=== PATIENT | male | born 1990 | race Two or more races ===

== ENCOUNTER 2019-01-26 21:21 | Emergency (ER) | payer SELFPAY ==
[~2019-01-26] VITALS: Ht 185.4 cm; Wt 77.1 kg
--- NOTE | 2019-01-26 21:45 | NUR ---
ED Nurse Note: pt brought in by [employer] and [employer] from intersection, c/c ETOH, pt was found on the intersection intoxicated, pt reports he drank 2 beer tonight. pt AA&ox4, gcs=15, skin warm and dry, resp even and unlabored, -n/v, vss. Report given to LEO Barry.
[2019-01-26] MEDS ORDERED: Zolpidem 5mg tab ORAL PRN (22:15)
[2019-01-26] MEDS ORDERED: chlordiazePOXIDE 25mg Cap ORAL PRN (22:15)
[2019-01-26] MEDS ORDERED: Miralax 17gm pkt ORAL PRN (22:15)
[2019-01-26] MEDS ORDERED: Morphine Sulfate 2mg/ml Inj(IV/IM USE ONLY) IVP PRN (22:15)
[2019-01-26] MEDS ORDERED: LORazepam Inj 2mg/ml 1ml IV PRN (22:15)
[2019-01-26 22:56] LABS: BASOPHILS % (AUTO) 0.6 % (0.0-2.0); EOSINOPHILS % (AUTO) 2.3 % (0.0-3.0); HEMATOCRIT 37.8 % (42.0-52.0); HEMOGLOBIN 13.7 G/DL (14.2-18.0); LYMPHOCYTES % (AUTO) 21.1 % (20.0-45.0); MEAN CORPUSCULAR VOLUME 83 FL (80-99); MONOCYTES % (AUTO) 9.3 % (1.0-10.0); NEUTROPHILS % (AUTO) 66.7 % (45.0-75.0); PLATELET COUNT 320 K/UL (150-450); RED BLOOD COUNT 4.58 M/UL (4.70-6.10); RED CELL DISTRIBUTION WIDTH 10.7 % (11.6-14.8); WHITE BLOOD COUNT 14.2 K/UL (4.8-10.8)
[2019-01-26] MEDS ORDERED: Thiamine HCl 100 MG in D5W 55 ML IV SCH (23:00)
[2019-01-26] MEDS ORDERED: Folic Acid 1 MG, Magnesium Sulfate 2,000 MG, Multivitamin - 12 Injection 10 ML in NS w/... IV SCH (23:00)
--- NOTE | 2019-01-26 23:00 | NUR ---
ED Nurse Note: iv medication not given at this time, verified w/ ERMD. pt is not getting admitted, doesn't need iv medication per ermd.
[2019-01-26 23:05] LABS: ANION GAP 10 mmol/L (5-15); BLOOD UREA NITROGEN 20 mg/dL (7-18); CALCIUM 8.7 MG/DL (8.5-10.1); CARBON DIOXIDE 25 MMOL/L (21-32); CHLORIDE 105 MMOL/L (98-107); CREATININE 1.1 MG/DL (0.55-1.30); POTASSIUM 3.5 MMOL/L (3.5-5.1); SODIUM 140 MMOL/L (136-145)
[2019-01-26 23:11] VITALS: BP 142/80
[2019-01-26 23:12] LABS: ALANINE AMINOTRANSFERASE 40 U/L (12-78); ALBUMIN 3.9 G/DL (3.4-5.0); ALBUMIN/GLOBULIN RATIO 1.1 (1.0-2.7); ALKALINE PHOSPHATASE 81 U/L (46-116); ASPARTATE AMINO TRANSFERASE 39 U/L (15-37); BILIRUBIN,TOTAL 0.4 MG/DL (0.2-1.0)
[2019-01-27 01:00] VITALS: BP 138/73
--- NOTE | 2019-01-27 01:00 | NUR ---
ED Nurse Note: pt cleaned and changed, vss, resp even and unlabored on RA, will cont monitor.
[2019-01-27 02:22] VITALS: BP 138/74
--- NOTE | 2019-01-27 02:23 | NUR ---
ER Nurse Note: Pt asleep, no signs of distress, VSS. All orders completed per ERMD orders. All safety measures met; will continue to montior.
--- NOTE | 2019-01-27 03:58 | Emergency Room Report ---
History of Present Illness General Chief Complaint: Alcohol Intoxication Source: Patient, EMS Present Illness HPI Patient is a 28-year-old male who brought in by EMS after increased agitation. Patient had recent alcohol intake. He reports having recent use of methamphetamine. He reports having increased generalized agitation. He denies any suicidal thoughts. Patient was brought in by EMS after some bizarre behavior was noted. Allergies: Uncoded Allergies: CANNABIS OIL (Allergy, Unknown, 01/26/19) Patient History Past Medical History: see triage record Reviewed Nursing Documentation: PMH: Agreed; PSxH: Agreed Nursing Documentation-PMH Past Medical History: No Stated History Review of Systems All Other Systems: limited - by poor historian Physical Exam Vital Signs Date Time Temp Pulse Resp B/P (MAP) Pulse Ox O2 Delivery O2 Flow Rate FiO2 01/26/19 21:17 98.4 108 18 142/80 (100) 98 Room Air General Appearance: well appearing, no apparent distress, alert, GCS 15 Head: normocephalic, atraumatic ENT: hearing grossly normal, normal voice Neck: full range of motion, supple Respiratory: lungs clear, no respiratory distress, speaking full sentences Cardiovascular #1: normal peripheral pulses, no edema Gastrointestinal: normal inspection Musculoskeletal: normal inspection Neurologic: alert, oriented x3, responsive, normal gait Psychiatric: mood/affect normal, other - agitation, slurred speech Skin: no rash Medical Decision Making Homeless Attestation I, Dr. Bagley, the Treating physician, has assessed whether the patient is alert and oriented to person, place and time and has determined that the patient is clinically stable for discharge. Diagnostic Impression: Primary Impression: Acute alcoholic intoxication Additional Impression: Polysubstance abuse ER Course Patient presented for altered mental status. Differential diagnosis included but was not limited to ischemic stroke, subarachnoid hemorrhage, hypoglycemia, spinal cord injury, neurodegenerative disorder, urinary tract infection, hypoxemia. Because of complexity of patient's case laboratory testing and imaging studies were ordered. Patient was noted to have initial agitation. He denies any suicidal thoughts. Patient was noted to be urine drug screen positive for amphetamine. Blood alcohol is also noted to be elevated. Patient was observed in the emergency department is noted to have improvement in symptoms.Patient was reassessed and was noted to have improvement his mental status. He appeared to be stable for discharge. Patient states that he has a place to live and is not currently homeless.Patient was advised to return if he had any concerns. Labs Test 01/26/19 22:23 White Blood Count 14.2 K/UL (4.8-10.8) Red Blood Count 4.58 M/UL (4.70-6.10) Hemoglobin 13.7 G/DL (14.2-18.0) Hematocrit 37.8 % (42.0-52.0) Mean Corpuscular Volume 83 FL (80-99) Mean Corpuscular Hemoglobin 30.0 PG (27.0-31.0) Mean Corpuscular Hemoglobin Concent 36.3 G/DL (32.0-36.0) Red Cell Distribution Width 10.7 % (11.6-14.8) Platelet Count 320 K/UL (150-450) Mean Platelet Volume 4.8 FL (6.5-10.1) Neutrophils (%) (Auto) 66.7 % (45.0-75.0) Lymphocytes (%) (Auto) 21.1 % (20.0-45.0) Monocytes (%) (Auto) 9.3 % (1.0-10.0) Eosinophils (%) (Auto) 2.3 % (0.0-3.0) Basophils (%) (Auto) 0.6 % (0.0-2.0) Sodium Level 140 MMOL/L (136-145) Potassium Level 3.5 MMOL/L (3.5-5.1) Chloride Level 105 MMOL/L (98-107) Carbon Dioxide Level 25 MMOL/L (21-32) Anion Gap 10 mmol/L (5-15) Blood Urea Nitrogen 20 mg/dL (7-18) Creatinine 1.1 MG/DL (0.55-1.30) Estimat Glomerular Filtration Rate > 60 mL/min (>60) Glucose Level 95 MG/DL (74-106) Calcium Level 8.7 MG/DL (8.5-10.1) Total Bilirubin 0.4 MG/DL (0.2-1.0) Aspartate Amino Transf (AST/SGOT) 39 U/L (15-37) Alanine Aminotransferase (ALT/SGPT) 40 U/L (12-78) Alkaline Phosphatase 81 U/L (46-116) Total Protein 7.4 G/DL (6.4-8.2) Albumin 3.9 G/DL (3.4-5.0) Globulin 3.5 g/dL Albumin/Globulin Ratio 1.1 (1.0-2.7) Salicylates Level 1.4 ug/mL (2.8-20) Urine Opiates Screen Negative (NEGATIVE) Acetaminophen Level < 2 MCG/ML (10-30) Urine Barbiturates Screen Negative (NEGATIVE) Phencyclidine (PCP) Screen Negative (NEGATIVE) Urine Amphetamines Screen Positive (NEGATIVE) Urine Benzodiazepines Screen Negative (NEGATIVE) Urine Cocaine Screen Positive (NEGATIVE) Urine Marijuana (THC) Screen Negative (NEGATIVE) Serum Alcohol 118 mg/dL Last Vital Signs Date Time Temp Pulse Resp B/P (MAP) Pulse Ox O2 Delivery O2 Flow Rate FiO2 01/27/19 02:22 98.5 88 16 138/74 98 Room Air Status: improved Disposition: HOME, SELF-CARE Condition: Stable Referrals: NOT CHOSEN IPA/,REFERRING (PCP) Gumaro Bagley MD Jan 27, 2019 03:58
[2019-01-27 05:47] VITALS: BP 134/76
--- NOTE | 2019-01-27 05:48 | NUR ---
ER Nurse Note: Pt asleep, no signs of distress, VSS. Mini Cog assessment to be completed. Pt calm and comfortable. All safety measures met; will continue to montior.
--- NOTE | 2019-01-27 07:22 | NUR ---
ER Nurse Note: All orders completed per ERMD. Pt ambulatory, VSS, no signs of distress, a&ox4, asleep. Pt currently not complaining of pain. Pending social media analyst in AM. Report given to LEO Sweeney for continuity of care.
[2019-01-27 07:25] VITALS: BP 103/65
--- NOTE | 2019-01-27 07:25 | NUR ---
ED Nurse Note: REPORT RECEIVED FROM LEO OLIVER. PT LAYING PEACEFULLY IN BED IN NAD. AOX4. EASILY AROUSABLE TO VOICE. BREAKFAST TRAY ORDERED. VSS.
--- NOTE | 2019-01-27 08:30 | NUR ---
ED Nurse Note: PT AOX4, SITTING PEACEFULLY IN BED IN NAD. PT GIVEN FOOD, WATER, AND JUICE. PT ASKED WHERE HE WILL GO AFTER DISCHARGE. PT STATES HE IS STAYING AT HIS FRIEND'S HOUSE BUT REFUSES TO DISCLOSE ADDRESS. PT OFFERED ASSISTANCE WITH TRANSPORTATION TO HIS FRIEND'S HOUSE BUT PT STATES, "DON'T WORRY. I'LL FIGURE IT OUT." PT OFFERED RESOURCES ON SHELTERS, FREE MEDICAL CLINICS, AND DRUG AND ALCOHOL REHAB BUT PT REFUSES. PT DRESSED IN WEATHER APPROPRIATE CLOTHING.
[2019-01-27 08:50] VITALS: BP 116/72
--- NOTE | 2019-01-27 08:50 | NUR ---
ED Nurse Note: PT LAYING PEACEFULLY IN BED IN NAD. AOX4. PT COMPLETED 100% OF BREAKFAST. DISCHARGE PAPERWORK EXPLAINED TO PT. PT VERBALIZES UNDERSTANDING AND ALL QUESTIONS ANSWERED. DISCHARGE PAPERWORK GIVEN TO PT, IV AND ID WRISTBAND REMOVED. PT WALKED OUT OF ER WITH STEADY GAIT AND ALL BELONGINGS DRESSED IN WEATHER APPROPRIATE CLOTHING.
[2019-01-27] MEDS ORDERED: Heparin 5000 units/ml inj SUBQ SCH (09:00)
== END 2019-01-27 08:50 | disposition home or self-care (01) ==
LOC: EDBD 21:21 → EMR 21:40
DX: F10.129 Alcohol abuse with intoxication, unspecified (principal); F19.10 Other psychoactive substance abuse, uncomplicated; Z91.09 Other allergy status, other than to drugs and biological substances
CPT/HCPCS: 36415; 80053; 80307; 85025; 99284; G0480; J3475; J3490; 80329